=== PATIENT | female | born 1965 | race Two or more races ===

== ENCOUNTER 2018-01-09 12:09 | Outpatient (CLI) | payer OTHER | END 2018-01-09 13:04 | disposition home or self-care (01) | LOC: MAMO-SONO 12:09 | DX: Z12.31 Encounter for screening mammogram for malignant neoplasm of breast (principal); Z87.898 Personal history of other specified conditions; N60.11 Diffuse cystic mastopathy of right breast; N60.12 Diffuse cystic mastopathy of left breast ==

== ENCOUNTER 2018-02-27 07:26 | Outpatient (CLI) | payer OTHER | END 2018-02-27 07:29 | disposition home or self-care (01) | LOC: SONOGRAMA 07:26 | DX: N64.89 Other specified disorders of breast (principal) ==